=== PATIENT | female | born 1960 | race Caucasian/White ===

== ENCOUNTER 2017-06-02 18:44 | Inpatient (IN) | payer BC, MEDICARE ==
[~2017-06-02] VITALS: Ht 160 cm; Wt 82.1 kg
[~2017-06-02 18:44] MED LIST: APIDRA; APIDRA SUBQ; ASPIRIN325 PO; DEXILANT60 MG PO; LANTUS; LANTUS SUBQ; LEVOTHYROXIN0.025 MG PO; LIPITOR 20 MG T20 M1 PO; LOSARTAN-HCTZ1 EAC1 PO; NORCO 5-325 TA1 EACH PO; NORVASC5 MG PO; NOVOLOG100 UNIT/1 SUBQ
[2017-06-02 19:03] VITALS: BP 135/61
[2017-06-02] MEDS ORDERED: ASPIR 8181 MG PO (19:06)
[2017-06-02] MEDS ORDERED: CARISOPRODOL 3350 MG (19:07)
[2017-06-02] MEDS ORDERED: GABAPENTIN 100100 MG (19:07)
[2017-06-02] MEDS ORDERED: ZETIA10 MG PO (19:07)
[2017-06-02] MEDS ORDERED: HYDROCODONE-AP1 EA11 (19:08)
[2017-06-02] MEDS ORDERED: LANTUS100 UNIT/M SUBQ (19:09)
[2017-06-02 19:29] LABS: ABSOLUTE BASOPHILS 0.1 thou/uL (0.0-0.2); ABSOLUTE EOSINOPHILS 0.1 thou/uL (0.0-0.7); ABSOLUTE LYMPHOCYTES 0.9 thou/uL (0.8-5.3); ABSOLUTE MONOCYTES 0.3 thou/uL (0.0-1.2); ABSOLUTE NEUTROPHILS 7.1 thou/uL (1.6-8.1); BASOPHILS 1.4 %; EOSINOPHILS 1.1 %; HEMATOCRIT 41.3 % (37.0-47.0); HEMOGLOBIN 14.1 gm/dL (12.0-15.0); LYMPHOCYTES 10.3 %; MCH 29.1 pg (26.0-34.0); MCHC 34.1 g/dL (28.0-37.0); MCV 85.3 fL (80.0-100.0); MONOCYTES 3.7 %; MPV 9.1 fl. (7.2-11.1); NUCLEATED RBCS 0 /100WBC; PLATELET COUNT* 238 thou/uL (150-400); POLYS 83.5 %; RBC 4.84 mil/uL (4.20-5.00); RDW-CV 12.6 % (10.5-14.5); WBC 8.6 thou/uL (4.0-11.0)
[2017-06-02 19:34] LABS: CALCIUM 9.3 mg/dL (8.5-10.1); CREATININE 1.1 mg/dL (0.6-1.3); POTASSIUM 3.5 mmol/L (3.5-5.1)
[2017-06-02 19:41] LABS: ALBUMIN 3.5 g/dL (3.4-5.0); TOTAL BILIRUBIN 0.4 mg/dL (<0.1-1.0); TOTAL PROTEIN 8.1 g/dL (6.4-8.2)
[2017-06-02 19:45] LABS: TROPONIN-I LEVEL 1.58 ng/mL (<0.06)
[2017-06-02 19:59] LABS: INFLUENZA A ANTIGEN None Detected (None Detect); INFLUENZA B ANTIGEN None Detected (None Detect)
[2017-06-02 20:00] VITALS: BP 99/41
[2017-06-02 20:41] LABS: APTT 26.2 Seconds (25.0-31.3); PROTIME 9.4 Seconds (9.20-11.50)
[2017-06-02 20:54] LABS: URINE BLOOD 2+ (Negative); URINE CLARITY SL CLOUDY; URINE COLOR YELLOW; URINE GLUCOSE-RANDOM NEGATIVE (Negative); URINE KETONES 1+ (Negative); URINE NITRITE-REFLEX NEGATIVE (Negative); URINE PROTEIN 1+ (Negative); URINE SPECIFIC GRAVITY 1.025 (1.005-1.030); URINE UROBILINOGEN 0.2 E.U./dl (0.2-1.0)
[2017-06-02 21:02] LABS: URINE BILIRUBIN 1+ (Negative); URINE LEUKOCYTES-REFLEX 2+ (Negative)
[2017-06-02 21:05] LABS: ICTOTEST (BILI CONFIRMATORY) Negative (Negative)
[2017-06-02 21:14] LABS: SQUAMOUS 0-3 Few /LPF (0-3)
[2017-06-02 21:15] LABS: BACTERIA-REFLEX >30 Many /HPF (None Seen); CASTS None Seen /LPF (None Seen); MUCUS None Seen strn/LPF (None Seen)
[2017-06-02 21:16] LABS: CRYSTALS None Seen /LPF (None Seen)
[2017-06-02 21:21] VITALS: BP 104/52
[2017-06-03] VITALS (9 sets, daily range): BP systolic 105–171; BP diastolic 40–85
[2017-06-03 09:53] LABS: CHOLESTEROL 188 mg/dL (<200); HDL CHOLESTEROL 35 mg/dL (>40); LDL CHOLESTEROL 118 mg/dL (<100); SERUM ASSESSMENT Clear; TC:HDL 5.4 Ratio (Not establshd); TRIGLYCERIDE 177 mg/dL (<150); VLDL 35 mg/dL (<40)
--- NOTE | 2017-06-03 13:06 | EKG ---
[place] [address] ELECTROCARDIOGRAM REPORT Name: GIAN RASCON Room: [address] ADM IN [facility]#: [id number] Admission: 06/02/17 Attend Phys: Joshua Lockwood Discharge: Date of : 62 Report #: [id number] THIS REPORT FOR: //name// [facility] ED Test Date: 2017-06-02 Test Time: 19:55:18 Pat Name: GIAN RASCON Department: Room: [facility] Gender: F Manager Global Communications: [place] : 1960 Requested By: Angie Quintero Order Number: [id number] MD: Tripp Colindres Measurements Intervals [place] Rate: 101 P: 33 [place]: 138 QRS: -12 QRSD: 95 T: 73 QT: 339 QTc: 440 Interpretive Statements Sinus tachycardia Baseline wander in lead(s) I,III,aVL,aVF Compared to ECG 05/25/2014 13:31:35 no change Electronically Signed On 06-03-2017 13:06:21 DEVELOPMENT VICE PRESIDENT by Tripp Colindres [email or web address] <ELECTRONICALLY SIGNED> By: Tripp Colindres MD, FACC 06/03/17 1306 54 54 Tripp Colindres MD, [facility] /EPI
[2017-06-04 03:08] LABS: GLYCOHEMOGLOBIN (HGB A1C) 9.7 % (4.8-5.6)
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
--- NOTE | 2017-06-04 16:04 | CARD ---
[address] [address] CARDIAC CATH REPORT Name: GIAN RASCON Room: [address] IN [facility]#: [id number] Admission: 06/02/17 Attend Phys: Joshua Lockwood Discharge: 06/03/17 Date of : 62 Report #: [id number] THIS REPORT FOR: //name// APPROVED REPORT Patient Details Patient Status: In-Patient Room #: The patient is a 57 year-old female Procedures Performed cardiac cath Indication Non-STEMI Risk Factors Arterial Hypertension, Hypercholesterolemia, Diabetes Tobacco History () Procedure Narrative The patient was brought electively to the Cardiac Catheterization Laboratory and was prepped and draped in a sterile manner. The right femoral was infiltrated with 1% Lidocaine subcutaneous anesthesia. A 6 fr sheath was inserted into the right femoral artery. Coronary angiography was performed using coronary diagnostic catheters. The right coronary system was accessed and visualized with a Diagnostic catheter. The left coronary system was accessed and visualized with a Diagnostic catheter. The left ventricle was accessed and visualized with a Diagnostic catheter. Left ventricular/Aortic Valve gradient assessed via catheter pullback. Left ventriculogram was performed in CLARKE projection. Closure device was deployed with a 6 Fr Mynx. The patient tolerated the procedure well and there were no complications associated with the procedure. There was no hematoma. Coronary Angiography The patient's coronary anatomy is right dominant. Diagnostic Cath Left Main 0% stenosis LAD 90% ostial and 90% stenosis before the first septal bander and cellophaner machine. 60% mid stenosis Diagonal 2 ostial 70% stenosis Circumflex 50% mid stenosis OM2 50% stenosis RPLV 70% mid stenosis [address] [address] CARDIAC CATH REPORT Name: GIAN RASCON Room: [address]#: [id number] Admission: 06/02/17 Attend Phys: Joshua Lockwood Discharge: 06/03/17 Date of : 62 Report #: [id number] Left Ventriculography The left ventricle is normal in size with normal contractility. The left ventricular ejection fraction is estimated to be 60-65%. Left ventricular wall motion abnormalities are not present. There is no mitral insufficiency. Hemodynamics The left ventricular end diastolic pressure is 25 mmHg. There was no gradient across the aortic valve upon pullback. Pullback from the left ventricle to the aorta revealed no gradient across the aortic valve. Conclusion 1. 90% ostial and 90% proximal lad stenosis, not easily amenable to stenting Recommendations CABG <ELECTRONICALLY SIGNED> By: Tripp Colindres MD, [facility] 06/04/17 1604 1604 1604Dabena Colindres MD, FACC /INF
[2017-06-12] MEDS ORDERED: LOPRESSOR25 PO (12:56)
[2017-06-15] MEDS ORDERED: COZAAR 50 MG TA50 M2 PO (10:32)
[2017-06-15] MEDS ORDERED: TORSEMIDE20 MG PO (10:37)
== END 2017-06-03 19:20 | disposition short-term general hospital (02) | DRG 281 ==
LOC: M.ERS 18:44 → M.TBA-ER 20:34 → M.2W 20:34
PROVIDERS: Internal Medicine; Nurse Practitioner Family; ADMIT Internal Medicine
PROC: 4A023N7 Measurement of Cardiac Sampling and Pressure, Left Heart, Percutaneous Approach (ICD-10-PCS; principal; 2017-06-03)
PROC: B2111ZZ Fluoroscopy of Multiple Coronary Arteries using Low Osmolar Contrast (ICD-10-PCS; principal; 2017-06-03)
PROC: B2151ZZ Fluoroscopy of Left Heart using Low Osmolar Contrast (ICD-10-PCS; principal; 2017-06-03)
DX: I21.4 Non-ST elevation (NSTEMI) myocardial infarction (principal); N39.0 Urinary tract infection, site not specified; E11.9 Type 2 diabetes mellitus without complications; I10 Essential (primary) hypertension; E78.5 Hyperlipidemia, unspecified; M79.7 Fibromyalgia; M47.9 Spondylosis, unspecified; E03.9 Hypothyroidism, unspecified; K21.9 Gastro-esophageal reflux disease without esophagitis; G89.29 Other chronic pain; I25.10 Atherosclerotic heart disease of native coronary artery without angina pectoris; F11.90 Opioid use, unspecified, uncomplicated; F17.210 Nicotine dependence, cigarettes, uncomplicated; Z88.1 Allergy status to other antibiotic agents; Z88.8 Allergy status to other drugs, medicaments and biological substances; Z82.49 Family history of ischemic heart disease and other diseases of the circulatory system; Z79.899 Other long term (current) drug therapy; Z79.82 Long term (current) use of aspirin; Z79.4 Long term (current) use of insulin; Z86.73 Personal history of transient ischemic attack (TIA), and cerebral infarction without residual deficits; Z90.49 Acquired absence of other specified parts of digestive tract; Z90.710 Acquired absence of both cervix and uterus; Z91.040 Latex allergy status

== ENCOUNTER 2018-05-31 10:37 | Inpatient (IN) | payer BC, MEDICARE ==
[~2018-05-31] VITALS: Ht 160 cm; Wt 84.7 kg
[~2018-05-31 10:37] MED LIST changes: +ASPIR 8181 MG PO; +CARISOPRODOL 3350 MG; +COZAAR 50 MG TA50 M2 PO; +GABAPENTIN 100100 MG; +LANTUS100 UNIT/M SUBQ; +LOPRESSOR25 PO; +TORSEMIDE20 MG PO; +ZETIA10 MG PO
[2018-05-31 10:41] VITALS: BP 196/79
[2018-05-31] MEDS ORDERED: BASAGLAR K100 UNIT/1 SUBQ (10:46)
[2018-05-31] MEDS ORDERED: HYDROCHLOROTH12.5 M1 PO (10:47)
[2018-05-31 11:04] LABS: ABSOLUTE EOSINOPHILS 0.3 thou/uL (0.0-0.7); ABSOLUTE LYMPHOCYTES 1.7 thou/uL (0.8-5.3); ABSOLUTE MONOCYTES 0.3 thou/uL (0.0-1.2); ABSOLUTE NEUTROPHILS 3.8 thou/uL (1.6-8.1); BASOPHILS 0.6 %; EOSINOPHILS 4.8 %; HEMATOCRIT 37.1 % (37.0-47.0); HEMOGLOBIN 12.5 gm/dL (12.0-15.0); LYMPHOCYTES 27.8 %; MCH 28.8 pg (26.0-34.0); MCHC 33.7 g/dL (28.0-37.0); MCV 85.5 fL (80.0-100.0); MONOCYTES 5.1 %; MPV 9.5 fl. (7.2-11.1); NUCLEATED RBCS 0 /100WBC; PLATELET COUNT* 202 thou/uL (150-400); POLYS 61.7 %; RBC 4.34 mil/uL (4.20-5.00); RDW-CV 12.7 % (10.5-14.5); WBC 6.2 thou/uL (4.0-11.0)
[2018-05-31 11:11] LABS: ANION GAP 9 mmol/L (7-16); BUN 34 mg/dL (7-18); CALCIUM 9.7 mg/dL (8.5-10.1); CHLORIDE 100 mmol/L (98-107); CO2 27 mmol/L (21-32); GLUCOSE 379 mg/dL (70-99); POTASSIUM 4.2 mmol/L (3.5-5.1); SODIUM 136 mmol/L (136-145)
[2018-05-31 11:14] LABS: APTT 23.6 Seconds (25.0-31.3); INR 0.9; PROTIME 9.6 Seconds (9.20-11.50)
[2018-05-31 11:31] LABS: ALBUMIN 3.5 g/dL (3.4-5.0); ALKALINE PHOSPHATASE 198 U/L (46-116); CK-MB MASS 3.9 ng/mL (<0.5-3.6); LIPASE 92 U/L (73-393); MAGNESIUM 2.5 mg/dL (1.8-2.4); NT-PRO BRAIN NAT PEPTIDE 191 pg/mL (<300); SGOT 17 U/L (15-37); SGPT 28 U/L (30-65); TOTAL BILIRUBIN 0.3 mg/dL (<0.1-1.0); TOTAL PROTEIN 7.4 g/dL (6.4-8.2); TROPONIN-I LEVEL <0.06 ng/mL (<0.06)
--- NOTE | 2018-05-31 14:58 | EKG ---
[place] [address] ELECTROCARDIOGRAM REPORT Name: GIAN RASCON Room: [place] [address] ADM IN [facility]#: [id number] Admission: 05/31/18 Attend Phys: Ricco Kaminski MD Discharge: Date of : 62 Report #: [id number] THIS REPORT FOR: //name// [facility] ED Test Date: 2018-05-31 Test Time: 10:42:59 Pat Name: GIAN RASCON Department: Room: [place] [address] Gender: F Journeyman Mechanic: : 1960 Requested By: Darryl Arriola Order Number: [id number] Domingo MD: Tripp Colindres Measurements Intervals [place] Rate: 100 P: 44 [place]: 179 QRS: 30 QRSD: 90 T: 59 QT: 350 QTc: 452 Interpretive Statements Sinus tachycardia Probable left atrial enlargement Anteroseptal infarct, old Baseline wander in lead(s) V5 Electronically Signed On 05-31-2018 14:58:42 SCALLOP CUTTER MACHINE by Tripp Colindres [email or web address] <ELECTRONICALLY SIGNED> By: Tripp Colindres MD, [facility] 05/31/18 1458 1042 1042 Tripp Colindres MD, [facility] /EPI
[2018-05-31 16:18] VITALS: BP 142/67
[2018-05-31 18:46] VITALS: BP 178/66
[2018-05-31 20:00] VITALS: BP 178/69
[2018-05-31] MEDS ORDERED: FLEXERIL PO (20:09)
[2018-05-31] MEDS ORDERED: GABAPENTIN 100100 MG PO (20:11)
[2018-05-31] MEDS ORDERED: COZAAR 25 MG TA25 M1 PO (20:22)
[2018-05-31] MEDS ORDERED: SYNTHROID50 MCG PO (20:27)
[2018-05-31] MEDS ORDERED: LOPRESSOR25 PO ×2 (20:30→20:31)
[2018-06-01] VITALS: BP 135/58
[2018-06-01 04:00] VITALS: BP 122/57
[2018-06-01 06:04] LABS: ABSOLUTE EOSINOPHILS 0.3 thou/uL (0.0-0.7); ABSOLUTE LYMPHOCYTES 2.4 thou/uL (0.8-5.3); ABSOLUTE MONOCYTES 0.3 thou/uL (0.0-1.2); ABSOLUTE NEUTROPHILS 2.4 thou/uL (1.6-8.1); BASOPHILS 0.4 %; EOSINOPHILS 5.5 %; HEMATOCRIT 32.2 % (37.0-47.0); HEMOGLOBIN 11.1 gm/dL (12.0-15.0); MCH 29.4 pg (26.0-34.0); MCHC 34.4 g/dL (28.0-37.0); MCV 85.4 fL (80.0-100.0); MONOCYTES 5.6 %; MPV 9.8 fl. (7.2-11.1); NUCLEATED RBCS 0 /100WBC; PLATELET COUNT* 179 thou/uL (150-400); POLYS 44.5 %; RBC 3.77 mil/uL (4.20-5.00); RDW-CV 12.3 % (10.5-14.5); WBC 5.4 thou/uL (4.0-11.0)
[2018-06-01 06:22] LABS: CALCIUM 9.1 mg/dL (8.5-10.1); CREATININE 0.8 mg/dL (0.6-1.3); POTASSIUM 4.1 mmol/L (3.5-5.1)
[2018-06-01 08:00] VITALS: BP 158/70
--- NOTE | 2018-06-01 11:52 | EKG ---
[place] [address] ELECTROCARDIOGRAM REPORT Name: GIAN RASCON Room: [address] ADM IN [facility]#: [id number] Admission: 05/31/18 Attend Phys: Ricco Kaminski MD Discharge: Date of : 62 Report #: [id number] THIS REPORT FOR: //name// [facility] ED Test Date: 2018-05-31 Test Time: 18:10:08 Pat Name: GIAN RASCON Department: Room: [facility] Gender: F Top Trimmer: : 1960 Requested By: Darryl Arrioal Order Number: [id number] : Tripp Colindres Measurements Intervals [place] Rate: 88 P: 44 [place]: 142 QRS: 18 QRSD: 95 T: 22 QT: 394 QTc: 477 Interpretive Statements Sinus rhythm Borderline prolonged QT interval Compared to ECG 05/31/2018 10:42:59 Sinus tachycardia no longer present Electronically Signed On 06-01-2018 11:51:43 MORTGAGE PROCESSOR by Tripp Colindres [email or web address] <ELECTRONICALLY SIGNED> By: Tripp Colindres MD, FAC 06/01/18 1151 1810 1810 Tripp Colindres MD, [facility] /EPI
[2018-06-01 12:08] VITALS: BP 158/70
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
--- NOTE | 2018-06-03 16:10 | EKG ---
[place] [address] ELECTROCARDIOGRAM REPORT Name: GIAN RASCON Room: [address] IN [facility]#: [id number] Admission: 05/31/18 Attend Phys: Ricco Kaminski MD Discharge: 06/01/18 Date of : 62 Report #: [id number] THIS REPORT FOR: //name// [facility] Test Date: 2018-05-31 Test Time: 10:02:53 Pat Name: GIAN RASCON Department: Room: [facility] Gender: F Lead Die Molder: : 1960 Requested By: Darryl Arriola Order Number: [id number] MD: Tripp Colindres Measurements Intervals [place] Rate: 100 P: 55 [place]: 177 QRS: 48 QRSD: 93 T: 43 QT: 347 QTc: 448 Interpretive Statements Sinus tachycardia Minimal ST depression, lateral leads Compared to ECG 06/02/2017 19:55:18 ST (T wave) deviation now present I MEDIA SPECIALIST [email or web address] <ELECTRONICALLY SIGNED> By: Tripp Colindres MD, FAC 06/03/18 1610 1002 1002 Tripp Colindres MD, [facility] /EPI
== END 2018-06-01 12:20 | disposition home or self-care (01) | DRG 313 ==
LOC: M.ERS 10:37 → M.TBA-ER 12:18 → M.2W 18:46
PROVIDERS: Family Medicine; ADMIT Internal Medicine
DX: R07.89 Other chest pain (principal); I10 Essential (primary) hypertension; E78.5 Hyperlipidemia, unspecified; M79.7 Fibromyalgia; K21.9 Gastro-esophageal reflux disease without esophagitis; E11.65 Type 2 diabetes mellitus with hyperglycemia; G89.29 Other chronic pain; I25.10 Atherosclerotic heart disease of native coronary artery without angina pectoris; R68.84 Jaw pain; M25.519 Pain in unspecified shoulder; E05.90 Thyrotoxicosis, unspecified without thyrotoxic crisis or storm; I25.2 Old myocardial infarction; Z95.1 Presence of aortocoronary bypass graft; Z86.73 Personal history of transient ischemic attack (TIA), and cerebral infarction without residual deficits; Z93.3 Colostomy status; Z87.891 Personal history of nicotine dependence; Z90.710 Acquired absence of both cervix and uterus; Z87.81 Personal history of (healed) traumatic fracture; Z87.828 Personal history of other (healed) physical injury and trauma; Z79.4 Long term (current) use of insulin; Z79.82 Long term (current) use of aspirin; Z79.899 Other long term (current) drug therapy; Z88.1 Allergy status to other antibiotic agents; Z91.040 Latex allergy status; Z88.8 Allergy status to other drugs, medicaments and biological substances; Z91.048 Other nonmedicinal substance allergy status; Z82.49 Family history of ischemic heart disease and other diseases of the circulatory system

== ENCOUNTER 2021-03-12 09:04 | Emergency (ER) | payer BC, MEDICARE ==
[~2021-03-12] VITALS: Ht 160 cm; Wt 83.0 kg
[~2021-03-12 09:04] MED LIST changes: +BASAGLAR K100 UNIT/1 SUBQ; +COZAAR 25 MG TA25 M1 PO; +FLEXERIL PO; +GABAPENTIN 100100 MG PO; +HYDROCHLOROTH12.5 M1 PO; +LOPRESSOR100 M1 PO; +SYNTHROID50 MCG PO
[2021-03-12] MEDS ORDERED: HYDROCODON-ACE1 EAC7 PO (09:15)
[2021-03-12] MEDS ORDERED: OZEMPIC1 MG/0.71 SUBQ (09:17)
[2021-03-12] MEDS ORDERED: PROTONIX40 M2 PO (09:18)
[2021-03-12] MEDS ORDERED: CARVEDILOL12.5 MG PO (09:18)
[2021-03-12] MEDS ORDERED: METHOCARBAMOL750 MG PO (09:18)
[2021-03-12] MEDS ORDERED: TRESIBA100 UNIT/1 SUBQ (09:18)
[2021-03-12] MEDS ORDERED: LYRICA100 MG PO (09:19)
[2021-03-12] MEDS ORDERED: METOCLOPRAMIDE10 MG PO (09:19)
[2021-03-12] MEDS ORDERED: VITAMIN D21250 MCG PO (09:20)
[2021-03-12] MEDS ORDERED: NEXLIZET 180-11 EACH PO (09:20)
[2021-03-12] MEDS ORDERED: TELMISARTAN-HC1 EAC1 PO (09:20)
[2021-03-12 09:29] LABS: ABSOLUTE BASOPHILS 0.1 thou/uL (0.0-0.2); ABSOLUTE EOSINOPHILS 0.2 thou/uL (0.0-0.7); ABSOLUTE LYMPHOCYTES 2.4 thou/uL (0.8-5.3); ABSOLUTE MONOCYTES 0.7 thou/uL (0.0-1.2); ABSOLUTE NEUTROPHILS 7.2 thou/uL (1.6-8.1); BASOPHILS 1.2 %; HEMATOCRIT 39.7 % (37.0-47.0); HEMOGLOBIN 13.2 gm/dL (12.0-15.0); LYMPHOCYTES 22.1 %; MCH 27.4 pg (26.0-34.0); MCHC 33.3 g/dL (28.0-37.0); MCV 82.2 fL (80.0-100.0); MONOCYTES 6.8 %; MPV 9.8 fl. (7.2-11.1); NUCLEATED RBCS 0 /100WBC; PLATELET COUNT* 294 thou/uL (150-400); POLYS 67.9 %; RBC 4.83 mil/uL (4.20-5.00); RDW-CV 13.5 % (10.5-14.5); WBC 10.7 thou/uL (4.0-11.0)
[2021-03-12 09:38] LABS: CALCIUM 9.2 mg/dL (8.5-10.1); CREATININE 1.5 mg/dL (0.6-1.3); POTASSIUM 3.7 mmol/L (3.5-5.1)
[2021-03-12 09:48] LABS: ALBUMIN 3.8 g/dL (3.4-5.0); TOTAL BILIRUBIN 0.8 mg/dL (<0.1-1.0); TOTAL PROTEIN 7.4 g/dL (6.4-8.2)
--- NOTE | 2021-03-12 10:07 | EKG ---
[place] [address] ELECTROCARDIOGRAM REPORT Name: GIAN RASCON Room: [facility]#: [id number] Admission: 03/12/21 Attend Phys: Discharge: Date of : 62 Date of Service: 03/12/[address] Report #: [id number] THIS REPORT FOR: //name// [facility] ED Test Date: 2021-03-12 Test Time: 09:32:44 Pat Name: GIAN RASCON Department: Room: Gender: Materials Technician: [facility] : 1960 Requested By: Darryl Arriola Order Number: [id number] MD: Tripp Colindres Measurements Intervals [place] Rate: 61 P: 40 SD: 157 QRS: 10 QRSD: 98 T: 53 QT: 439 QTc: 443 Interpretive Statements Sinus rhythm Probable septal infarct, old Compared to ECG 05/31/2018 18:10:08 no change Electronically Signed On 03-12-2021 10:07:24 QUALITY SYSTEMS TECHNICIAN by Tripp Colindres [email or web address] <ELECTRONICALLY SIGNED> By: Tripp Colindres MD, FAC 03/12/21 1007 1 Tripp Colindres MD, [facility] /EPI
[2021-03-12] MEDS ORDERED: ZOFRAN ODT4 MG DISSOLVE (10:13)
[2021-03-12 10:58] VITALS: BP 134/61
== END 2021-03-12 10:59 | disposition home or self-care (01) ==
LOC: M.ERS 09:04
PROVIDERS: Family Medicine
DX: R53.1 Weakness (principal); R06.02 Shortness of breath; R11.2 Nausea with vomiting, unspecified; R19.7 Diarrhea, unspecified; R63.0 Anorexia; E11.9 Type 2 diabetes mellitus without complications; I10 Essential (primary) hypertension; E78.5 Hyperlipidemia, unspecified; Z86.73 Personal history of transient ischemic attack (TIA), and cerebral infarction without residual deficits; M79.7 Fibromyalgia; E03.9 Hypothyroidism, unspecified; K21.9 Gastro-esophageal reflux disease without esophagitis; Z90.711 Acquired absence of uterus with remaining cervical stump; Z98.890 Other specified postprocedural states; Z79.82 Long term (current) use of aspirin; Z79.899 Other long term (current) drug therapy; Z88.1 Allergy status to other antibiotic agents; Z88.8 Allergy status to other drugs, medicaments and biological substances; Z91.040 Latex allergy status; Z91.048 Other nonmedicinal substance allergy status; Z87.891 Personal history of nicotine dependence